=== PATIENT | female | born 1990 | race Caucasian/White ===

== ENCOUNTER 2020-01-28 19:48 | Emergency (ER) | payer OTHER ==
[~2020-01-28] VITALS: Ht 160 cm; Wt 112.5 kg
[2020-01-28 19:55] VITALS: Ht 160 cm; Wt 112.5 kg
[2020-01-28 20:35] LABS: BASOPHIL % 0.3 % (0-2); RED CELL DISTRIBUTION WIDTH 12.8 % (11.5-14.5)
[2020-01-28 20:41] LABS: PLATELET COUNT 420 x10^3mcL (130-400)
[2020-01-28 20:47] LABS: CALCIUM 8.4 mg/dL (8.5-10.1); CARBON DIOXIDE 24.7 mmol/L (21-32); CHLORIDE SERUM 103 mmol/L (98-107); CREATININE SERUM 0.9 mg/dL (0.6-1.0); GFR1 > 60 mL/min; GLUCOSE SERUM 98 mg/dL (74-106); POTASSIUM SERUM 3.8 mmol/L (3.5-5.1); SODIUM SERUM 139 mmol/L (136-145)
[2020-01-28 20:48] LABS: UA SPECIFIC GRAVITY >=1.030 (1.005-1.035); microscopic required? YES; urine erythrocyte 2+ (NEGATIVE)
[2020-01-28 20:51] LABS: ALKALINE PHOSPHATASE 84 U/L (46-116); ALT/SGPT 37 U/L (14-59); AST/SGOT 21 U/L (15-37); BILIRUBIN TOTAL 0.44 mg/dL (0.20-1.00); HDL CHOLESTEROL 51 mg/dL (40-60); TOTAL PROTEIN, SERUM 8.1 g/dL (6.4-8.2); TRIGLYCERIDES 69 mg/dL (<150)
[2020-01-28 20:53] LABS: CHOLESTEROL 123 mg/dL (<200); CHOLESTEROL/HDL RATIO 2.4
[2020-01-29 01:02] VITALS: BP 111/73
== END 2020-01-29 01:02 | disposition home or self-care (01) ==
LOC: ED 19:48
PROVIDERS: Specialist
DX: N83.201 Unspecified ovarian cyst, right side (principal); D72.829 Elevated white blood cell count, unspecified; J45.909 Unspecified asthma, uncomplicated; Z88.1 Allergy status to other antibiotic agents
CPT/HCPCS: J1885; J2405; J3010; J7030; Q0092

== ENCOUNTER 2020-01-29 12:58 | Emergency (ER) | payer OTHER ==
[~2020-01-29] VITALS: Ht 160 cm; Wt 112.0 kg
[2020-01-29 13:17] VITALS: BP 114/44; Ht 160 cm; Wt 112.0 kg
== END 2020-01-29 14:52 | disposition home or self-care (01) ==
LOC: ED 12:58
DX: R10.32 Left lower quadrant pain (principal); J45.909 Unspecified asthma, uncomplicated; Z88.1 Allergy status to other antibiotic agents

== ENCOUNTER 2020-01-30 18:45 | Emergency (ER) | payer OTHER ==
[~2020-01-30] VITALS: Ht 160 cm; Wt 112.5 kg
[2020-01-30 19:09] VITALS: Ht 160 cm; Wt 112.5 kg
[2020-01-30 19:37] LABS: BASOPHIL % 0.2 % (0-2); PLATELET COUNT 368 x10^3mcL (130-400); RED CELL DISTRIBUTION WIDTH 12.6 % (11.5-14.5)
[2020-01-30 19:46] LABS: CALCIUM 8.6 mg/dL (8.5-10.1); CARBON DIOXIDE 27.4 mmol/L (21-32); CHLORIDE SERUM 105 mmol/L (98-107); CREATININE SERUM 1.1 mg/dL (0.6-1.0); GFR1 > 60 mL/min; GLUCOSE SERUM 96 mg/dL (74-106); POTASSIUM SERUM 3.9 mmol/L (3.5-5.1); SODIUM SERUM 139 mmol/L (136-145)
[2020-01-30 19:50] LABS: ALBUMIN 3.7 g/dL (3.4-5.0); ALKALINE PHOSPHATASE 83 U/L (46-116); ALT/SGPT 27 U/L (14-59); AMYLASE 48 U/L (25-115); AST/SGOT 15 U/L (15-37); BILIRUBIN TOTAL 0.5 mg/dL (0.20-1.00); LIPASE 100 IU/L (73-393); TOTAL PROTEIN, SERUM 7.4 g/dL (6.4-8.2)
[2020-01-30 21:20] VITALS: BP 124/56
== END 2020-01-30 21:20 | disposition home or self-care (01) ==
LOC: ED 18:45
PROVIDERS: Emergency Medicine
DX: R10.32 Left lower quadrant pain (principal); R11.2 Nausea with vomiting, unspecified; J45.909 Unspecified asthma, uncomplicated; Z88.1 Allergy status to other antibiotic agents
CPT/HCPCS: J1885; J2270; J2405; J7030

== ENCOUNTER 2020-02-01 22:51 | Observation (INO) | payer OTHER ==
[~2020-02-01] VITALS: Ht 160 cm; Wt 111.6 kg
[2020-02-01 22:55] VITALS: Ht 160 cm; Wt 111.6 kg
[2020-02-01 23:54] LABS: microscopic required? NO
[2020-02-01 23:57] LABS: BASOPHIL % 0.3 % (0-2); PLATELET COUNT 336 x10^3mcL (130-400); RED CELL DISTRIBUTION WIDTH 12.7 % (11.5-14.5)
[2020-02-01 23:59] LABS: UA SPECIFIC GRAVITY >=1.030 (1.005-1.035); urine erythrocyte NEGATIVE (NEGATIVE)
[2020-02-02 00:09] LABS: CALCIUM 8.1 mg/dL (8.5-10.1); CARBON DIOXIDE 24.9 mmol/L (21-32); CREATININE SERUM 1.5 mg/dL (0.6-1.0); POTASSIUM SERUM 3.8 mmol/L (3.5-5.1)
[2020-02-02 00:13] LABS: ALBUMIN 3.4 g/dL (3.4-5.0); BILIRUBIN TOTAL 0.4 mg/dL (0.20-1.00); TOTAL PROTEIN, SERUM 7.5 g/dL (6.4-8.2)
--- NOTE | 2020-02-02 03:35 | NUR ---
RECEIVED PT FROM ED NURSE VIA WHEELCHAIR. PATIENT IS AAOX4, DENIES HEADACHES AT THIS TIME, COMPLAINTS OF NAUSEA/VOMITING. PATIENT IS MED SURG PATIENT, DENIES CHEST PAIN. PULSES ARE EQUAL BILATERALLY, NO EDEMA NOTED. PATIENT IS CTA, ON RA, DENIES SOB. NO ACUTE DISTRESS NOTED, EVEN AND UNLABORED BREATHING. ABDOMEN IS OBESE, NORMOACTIVE X4 QUADRANTS, LAST BM 01/31. PATIENT REPORTS INTERMITTENT ABDOMEN PAIN, POOR APPETITE, AND N/V AT THIS TIME. PATIENT VOIDS FREELY, DENIES PAIN. PATIENT DENIES GENERALIZED WEAKNESS, ABLE TO AMBULATE WITHOUT DIFFICULTY. SKIN IS DRY AND INTACT, NO LESIONS NOTED. IV TO RAC SITE 22G, INTACT NO REDNESS OR SWELLING. PATIENT HAS 2ND BAG OF NS BOLUS RUNNING AT THIS TIME. ALL SAFETY MEASURES IN PLACE, BED IN LOWEST POSITION, CALL LIGHT WITHIN REACH. WILL CONTINUE TO MONITOR.
--- NOTE | 2020-02-02 03:58 | NUR ---
PATIENT COMPLAINING OF NAUSEA/VOMITING, PAGE'D DR. RAMIREZ. AWAITING FOR CALL BACK AT THIS TIME.
[2020-02-02 03:59] VITALS: BP 123/59
--- NOTE | 2020-02-02 04:58 | NUR ---
EMAR WAS UPDATED, ADMINISTERED ZOFRAN PRN. PATIENT IS RESTING WITH EYES CLOSED AT THIS TIME. ALL SAFETY MEASURES IN PLACE, BED IN LOWEST POSITION, CALL LIGHT WITHIN REACH. WILL CONTINUE TO MONITOR.
--- NOTE | 2020-02-02 07:01 | NUR ---
PATIENT RESTING INTERMITTENTLY WITH EYES CLOSED. PATIENT REMAINS ON RA, DENIES SOB. IV AT RAC 20G, NS AT 125 ML/HR. PATIENT RECEIVED ZOFRAN, RESTING AT THIS TIME. ALL SAFETY MEASURES IN PLACE. BED IN LOWEST POSITION, CALL LIGHT WITHIN REACH. WILL CONTINUE TO MONITOR.
--- NOTE | 2020-02-02 07:10 | NUR ---
RECEIVED REPORT FROM ZACARIAS MADRID. PT IS AAOX4. PT MED SURG STATUS. DENIES CHEST PAIN AT THIS TIME. PT ON RA NO SOB OR DISTRESS. IV TO RAC NS RUNNING AT @125 CC/HR. ALL COMFORT AND SAFETY MEASURES IN PLACE. ALL QUESTIONS AND CONCERNS ADDRESSED. WILL CONTINUE TO MONITOR PT.
--- NOTE | 2020-02-02 07:30 | NUR ---
ENDORSED CARE TO DAYSHIFT NURSE. ALL QUESTIONS/CONCERNS ADDRESSED.
[2020-02-02 09:15] VITALS: BP 102/46
--- NOTE | 2020-02-02 11:10 | NUR ---
IN TO SEE PT. PT C/O PAIN TO LOWER ABD. PER PT, PAIN 06/03. PRN TYLENOL GIVEN FOR PAIN. WILL CONTINUE TO MONITOR PT.
[2020-02-02 13:54] VITALS: BP 112/50
--- NOTE | 2020-02-02 14:40 | NUR ---
IN TO SEE PT. PT C/O NAUSEA AT THIS TIME. PT GIVEN PRN NAUSEA MEDICATION. ALL QUESTIONS AND CONCERNS ADDRESSED. WILL CONTINUE TO MONITOR PT.
--- NOTE | 2020-02-02 15:29 | NUR ---
PT C/O 10 FLANK PAIN. TYLENOL NOT YET DUE. DR. RAMIREZ PAGED TO REQUEST MED FOR MODERATE PAIN.
[2020-02-02 18:07] VITALS: BP 118/47
--- NOTE | 2020-02-02 18:10 | NUR ---
IN TO SEE PT. PT REMAINS STABLE AT THIS TIME W/ NO ACUTE CHANGES TO STATUS. ALL QUESTIONS AND CONCERNS ADDRESSED. WILL CONTINUE TO MONITOR PT.
--- NOTE | 2020-02-02 19:10 | NUR ---
REPORT GIVEN TO ZACARIAS MADRID. PT REMAINED STABLE THROUGHOUT MY SHIFT W/ NO ACUTE CHANGES TO STATUS. ALL QUESTIONS AND CONCERNS ADDRESSED. ALL NEEDS MET AT THIS TIME. ALL CARES ENDORSED.
--- NOTE | 2020-02-02 19:30 | NUR ---
RECEIVED PT FROM DAYSMOFT NURSE. PT IS AAOX4, DENIES HEADACHE/NAUSEA/DIZZINESS AT THIS TIME. PT IS MED SURG PATIENT, DENIES CHEST PAIN. PULSES ARE EQUAL BILATERALLY, NO EDEMA NOTED. PT IS CTA, ON RA, DENIES SOB. ABDOMEN I IS OBESE, NO PAIN UPON PALPATION. NORMOACTIVE X4 QUADRANTS, LAST BM 02/01, PATIENT COMPLAINTS OF INTERMITTENT PAIN AND NAUSEA. PT VOIDS FREELY, DENIES GENERALIZED WEAKNESS. SKIN IS DRY AND INTACT, NO LESIONS NOTED. IV TO RAC 20G, SITE INTACT, NO REDNESS OR SWELLING NOTED. PT IS CALM AND COOPERATIVE AT THIS TIME. ALL SAFETY MEASURES IN PLACE. BED IN LOWEST POSITION, CALL LIGHT WITHIN REACH. WILL CONTINUE TO MONITOR.
[2020-02-02 21:35] VITALS: BP 122/64
--- NOTE | 2020-02-03 00:39 | NUR ---
PATIENT RESTING INTERMITTENTLY WITH EYES CLOSED. NO ACUTE CHANGES AT THIS TIME. PATIETN WAS GIVEN TYLENOL PRN FOR 3/10 PAIN. ALL SAFETY MEASURES IN PLACE. BED IN LOWEST POSITION, CALL LIGHT WITHIN REACH. WILL CONTINUE TO MONITOR.
[2020-02-03 04:56] VITALS: BP 122/56
--- NOTE | 2020-02-03 06:29 | NUR ---
PATIENT RESTED INTERMITTENTLY WITH EYES CLOSED. PATIENT COMPLAINED OF 7/10 PAIN, GIVEN TORADOL PRN. PATIENT DENIES SOB/CHEST PAIN. IV TO RAC 20G RUNNING NS AT 125ML/HR. SITE INTACT, NO REDNESS OR SWELLING. ALL SAFETY MEASURES IN PLACE. BED IN LOWEST POSITION, CALL LIGHT WITHIN REACH. WILL CONTINUE TO MONITOR.
[2020-02-03 07:04] LABS: CALCIUM 7.9 mg/dL (8.5-10.1); CREATININE SERUM 1.3 mg/dL (0.6-1.0)
--- NOTE | 2020-02-03 07:27 | NUR ---
ENDORSED CARE TO DAYSHIFT NURSE. ALL QUESTIONS/CONCERNS ADDRESSED.
[2020-02-03 07:28] LABS: BASOPHIL % 0.2 % (0-2); PLATELET COUNT 313 x10^3mcL (130-400); RED CELL DISTRIBUTION WIDTH 12.4 % (11.5-14.5)
--- NOTE | 2020-02-03 07:30 | NUR ---
RECEIVED PATIENT IN CONTACT/DROPLET ISOLATION. PATIENT IS IN BED, AWAKE, ALERT AND ORIENTED. RESP EVEN AND UNLABORED, LUNGS CLEAR ON ROOM AIR. IVF INFUSING WELL TO RT A/C, SITE PATIENT. ABD SOFT AND ROUND, BOWEL SOUNDS ACTIVE, LBM EARLY THIS AM PER PATIENT. VOIDING WELL, BRP. NO EDEMA NOTED PULSES PALABLE. WILL CONTINUE TO MONITOR.
--- NOTE | 2020-02-03 08:14 | NUR ---
PATIENT C/O FEELING NAUSEATED AND HAVING 5/10 LEFT FLANK PAIN. MEDICATED WITH ZOFRAN IV BY GINNY MADRID AND ALSO MEDICATED WITH TYLENOL PO PER PATIENT'S REQUEST BY MYSELF. WILL MONITOR FOR MONITOR FOR EFFECT.
[2020-02-03 08:33] VITALS: BP 126/69
--- NOTE | 2020-02-03 09:00 | NUR ---
PATIENT REMAINS IN BED, TALKING ON HER CELL PHONE. PER PATIENT LEFT FLANK PAIN IS NOW 3/10 ON THE PAIN SCALE AND HER NAUSEA HAS SUBSIDED. WILL CONTINUE TO MONITOR.
[2020-02-03 12:54] VITALS: BP 131/77
--- NOTE | 2020-02-03 14:09 | NUR ---
PATIENT C/O ABD PAIN AND FEELING NAUSEATED. PAIN IS 7/10. PATIENT MEDICATED WITH TORADOL AND ZOFRAN IV BY AMIE MADRID. WILL CONTINUE TO MONITOR FOR RELIEF.
--- NOTE | 2020-02-03 14:48 | NUR ---
Initial Nutrition Assessment: 204B ADALBERTO MCKEON 29F HR Nursing trigger: N/V/D > 3 days, Poor PO > 3 days Dx: abd pain, left flank pain, renal colic PMHx: no significant past medical history per H and P (02/01) PSHx: none noted Labs: (02/02) WBC 11.7H, H/H 11.8/35L, Cr. 1.3H, Ca 7.9L, (01/31) AST 13L, Lipase 59L Meds: Zofran, Heparin sodium, Colace, Tylenol, Toradol, Sodium Diet: Regular PO intake since admission: 30-50% x 3 meals with average PO intake of 36.67% Ht:160.02cm/63in Wt: 111.584kg/245.5lbs BMI: 43.6 Bed scale: 257lbs IBW: 52.27kg/115lbs %IBW: 213.5% ABW: 67kg UBW: 245lbs Age: 29 Food Allergies: Peaches Edema: no edema noted Last BM: 02/02 at 4:00 am per RN Skin: skin intact, no open wound noted Tho: 19 Per H and P (02/01), Patient is a 29-year-old female with no significant past medical history who presents with progressively worsening flank pain. Patient reports that her symptoms initially started on Monday where she had bad pain which persisted all week which was a sharp and constant pain to her left flank. Patient characterized the pain as persistent and dull with associated nausea. Patient has a past medical history of asthma and last use developed butyryl was 3 days ago. Patient came to the ER and in the ER CT scan of the abdomen showed 7 mm stone on the left. Patient started on IV fluids patient having leukocytosis but urinalysis is negative for infection. Pt was admitted with dx: 7mm left nephrolithiasis, flank pain left side, asthma, obesity, nausea RD Note (02/03/2020) Per pt's RN, pt's COVID test came back negative, but pt's door was closed d/t pt was sleeping after an episode of emesis. Per pt's primary RN, pt had c/o of nausea and vomiting this morning, and pt did not have breakfast today d/t poor appetite. Additionally, pt did not have diarrhea or chewing/swallowing difficulty observed. Visited pt again to obtain more information. Pt denied recent weight change, and her usual body weight was 245lbs. At home, pt followed a regular diet and denied using nutritional supplements. Pt's procedure for kidney stone is scheduled for 02/03, and pt will be NPO starting 8 AM on 02/03. Problem with: N/V/D/C: nausea, vomiting Problems with: Chewing: Swallowing: none per RN Current appetite: small appetite per pt Recent wt change: No per pt %wt change: No per pt Height: 5'3" per pt Vitamin/Supplement use: No per pt Special diet at home: none per pt Physical activity: none per pt Nutrition education given (specify specific nutrition education and handout given): Encouraged pt to increase PO intake after procedure scheduled tomorrow. Food-drug interactions? Education given? n/a Estimated Nutritional Needs Based on adjusted body weight (67kg) Energy: 6017-2558 kcal/day (22-25 kcal/kg for weight reduction) Protein: 53-67 g/day (0.8-1 g/kg for maintenance) Fluid: 4324-6597 mL/day (1 mL/kcal) Nutrition Diagnosis: 1. Inadequate energy and protein intake r/t poor PO intake a/e/b pt average PO intake of 36.67% since admission. 2. Obese r/t imbalance intake and output a/e/b pt BMI = 43.6kg/m2. Intervention 1. Continue Regular diet as tolerate 2. Continue NPO for procedure scheduled on 02/03 3. Recommend resuming regular diet when appropriate. 4. RD will implement ONS for diet if pt's PO intake meets < 75% of estimated needs upon follow up Monitor/Evaluate Goal: PO intake at least 75% of estimated needs Monitor: PO intake, Labs, GI function, Body weight F/U in 2-3 days as high risk 02/04-
--- NOTE | 2020-02-03 15:55 | NUR ---
PATIENT REMAINS IN BED, NO FURTHER C/O PAIN OR NAUSEA AT THIS TIME. IVF INFUSING WELL. CONSENT SIGNED FOR LITHOTRIPSY FOR TOMORROW. NO ACUTE DISTRESS NOTED. WILL CONTINUE TO MONITOR.
--- NOTE | 2020-02-03 17:07 | NUR ---
PATIENT REMAINS IN BED WATCHING MOVIES. DENIES ANY C/O PAIN OR DISCOMFORT AT THIS TIME. IVF INFUSING WELL, SITE PATENT. AMBULATES AD KIRAN TO THE BATHROOM PRN. NO FURTHER N/V NOTED. NPO AFTER 8AM TOMORROW. NO ACUTE DISTRESS NOTED.
--- NOTE | 2020-02-03 17:11 | NUR ---
PATIENT'S PLAN OF CARE WAS DISCUSSED AND REVIEWED WITH MANAGER INTERNET:GALDINO CHAPA. I HAVE REVIEWED THE DATA COLLECTION BY MANAGER INTERNET (NAME):GALDINO CHAPA. ENTERED ON (DATE/TIME):02/03/20. I CONCUR WITH THE DATA AND ANY EXCEPTIONS OR COMMENTS ARE LISTED BELOW:
[2020-02-03 17:17] VITALS: BP 127/78
--- NOTE | 2020-02-03 18:00 | NUR ---
NO CHANGE IN PATIENT'S CONDITION NOTED AT THIS TIME. WILL CONTINUE TO MONITOR.
--- NOTE | 2020-02-03 19:02 | NUR ---
PATIENT C/O FEELING NAUSEATED. MEDIATED WITH ZOFRAN IV BY JOESPH MADRID ORDERED. WILL ENDORSE FOLLOW UP TO NOC RN.
--- NOTE | 2020-02-03 19:45 | NUR ---
RECEIVED PT IN BED AWAKE, ALERT, ORIENTED X4. SPEECH CLEAR. ABLE TO MAKE NEEDS KNOWN. PT C/O PAIN TO LEFT FLANK AREA, WILL MEDICATE ORDERED. NO TELE MONITOR NEEDED. LUNG SOUNDS CLEAR. BREATHING EASILY ON ROOM AIR. NO RESPIRATORY DISTRESS NOTED. BS ACTIVE IN ALL FOUR QUADS. LAST BM AT THIS TIME. PEDAL PULSES PALPABLE. VOIDING FREELY. IV TO RAC INFUSING NS AT 125ML/HR. SITE INTACT. PT ABLE TO AMBULATE WITHOUT ASSISTANCE FULL ROM. SKIN IN CDI. SHIFT ASSESSMENT COMPLETED. ALL NEEDS TENDED TO. PT AWARE SHE WILL BE NPO AT 0800. CALL LIGHT WITHIN REACH. BED IS IN LOWEST POSITION. WILL CONTINUE TO MONITOR CLOSELY.
--- NOTE | 2020-02-03 20:10 | NUR ---
PT C/O PAIN TO LEFT FLANK AREA, MORPHINE GIVEN ORDERED. NEW IV BAG HUNG AT THIS TIME. ALL DUE MEDS GIVEN ORDERED. CALL LIGHT WITHIN REACH. BED IS IN LOWEST POSITION. WILL CONTINUE TO MONITOR CLOSELY.
[2020-02-03 20:50] VITALS: BP 118/66
[2020-02-04] VITALS (11 sets, daily range): BP systolic 110–130; BP diastolic 51–76
--- NOTE | 2020-02-04 00:45 | NUR ---
PT C/O PAIN TO LEFT FLANK AREA AND NAUSEA, MEDICATED WITH TORADOL ORDERED AND ZOFRAN. IVF ONGOING. ALL NEEDS TENDED TO. WILL CONTINUE TO MONITOR CLOSELY.
--- NOTE | 2020-02-04 04:27 | NUR ---
PT HAD ONE EPISODE OF VOMITTING BILE, ZOFRAN GIVEN AT THIS TIME. NEW IV BAG HUNG. ALL NEEDS TENDED TO. PT AWARE SHE WILL EAT BREAKFAST THIS AM AND THEN BE NPO. CALL LIGHT WITHIN REACH. BED IS IN LOWEST POSITION. WILL CONTINUE TO MONITOR CLOSELY.
--- NOTE | 2020-02-04 07:30 | NUR ---
RECEIVED PATIENT IN BED, APPEARS TO BE RESTING WELL. IVF INFUSING WELL TO RT A/C, SITE PATENT. RESP EVEN AND UNLABORED, LUNGS CLEAR ON ROOM AIR. PATIENT TO BE NPO AFTER 8AM FOR PROCEDURE TODAY. NO ACUTE DISTRESS NOTED AT THIS ITME.
[2020-02-04 07:48] LABS: CALCIUM 8.3 mg/dL (8.5-10.1); CREATININE SERUM 1.2 mg/dL (0.6-1.0); MAGNESIUM 1.7 mg/dL (1.8-2.4); POTASSIUM SERUM 4.4 mmol/L (3.5-5.1)
[2020-02-04 08:31] LABS: BASOPHIL % 0.3 % (0-2); PLATELET COUNT 332 x10^3mcL (130-400); RED CELL DISTRIBUTION WIDTH 12.6 % (11.5-14.5)
--- NOTE | 2020-02-04 08:45 | NUR ---
PATIENT IS NOW NPO AFTER HAVING A BREAKFAST TRAY THIS AM. PATIENT C/O FEELING NAUESATED AND HAVING ABD PAIN 8/10 ON THE PAIN SCALE. WILL BE MEDICATED ORDERED.
--- NOTE | 2020-02-04 09:25 | NUR ---
PATIENT MEDICATED AT THIS TIME FOR ABD PAIN 8/10 ON THE PAIN SCALE, AND ZOFRAN IV FOR C/O NAUSEA BY AMIE MADRID. WILL MONITOR FOR EFFECT.
--- NOTE | 2020-02-04 10:02 | NUR ---
PATIENT'S PLAN OF CARE WAS DISCUSSED AND REVIEWED WITH EMBEDDED LINUX DEVELOPER:GALDINO CHAPA. I HAVE REVIEWED THE DATA COLLECTION BY EMBEDDED LINUX DEVELOPER (NAME):GALDINO CHAPA. ENTERED ON (DATE/TIME):02/04/20. I CONCUR WITH THE DATA AND ANY EXCEPTIONS OR COMMENTS ARE LISTED BELOW:
--- NOTE | 2020-02-04 10:34 | NUR ---
PATIENT APPEARS TO BE SLEEPING WELL AT THIS TIME AFTER MORPINE AND ZOFRAN WAS GIVEN. NO FURTHER C/O PAIN OR NAUSEA NOTED. WILL CONTINUE TO MONITOR.
--- NOTE | 2020-02-04 11:24 | NUR ---
PATIENT'S MG LEVEL IS 1.[address] HEATH HERE AND NOTIFIED. NEW ORDERS RECEIVED.
--- NOTE | 2020-02-04 11:57 | NUR ---
HEPARIN SQ WAS HELD THIS AM PER DR WICK. PATIENT REMAINS IN BED, APPEARS TO BE SNORING. NO FURTHER C/O PAIN OR NAUSEA AT THIS TIME.
--- NOTE | 2020-02-04 14:09 | NUR ---
PATIENT REMAINS IN BED, CHOLORHEXADINE WIPES DONE. PATIENT DID HAVE ANOTHER VERY SMALL EMESIS, BUT APPEARS TO HAVE GONE BACK TO SLEEP, SNORING HEARD. NO ACUTE DISTERSS NOTED. WILL CONTINUE TO MONITOR.
--- NOTE | 2020-02-04 15:15 | NUR ---
PATIENT CONTINUES TO APPEAR TO BE RESTING WELL AT THIS TIME. NPO FOR PROCEDURE THIS AFTERNOON. WILL CONTINUE TO MONITOR.
--- NOTE | 2020-02-04 17:01 | NUR ---
PATIENT GOING DOWN TO OR AT THIS TIME VIA BED. HL PATENT. WILL CONTINUE TO MONITOR UPON RETURN TO THE FLOOR.
--- NOTE | 2020-02-04 19:25 | NUR ---
RECEIVED REPORT FROM DAY SHIFT NURSE. PT IN OR AT THIS TIME. WAITING FOR PT TO RETURN.
--- NOTE | 2020-02-04 21:00 | NUR ---
RECEIVED PT FROM OR NURSE VIA [facility]. PT S/P LITHOTRIPSY. PT A/OX4. ABLE TO MAKE NEEDS KNOWN. SPEECH CLEAR. MED SURG PATIENT. PT DENIES CHEST PAIN OR PRESSURE. RR EVEN AND UNLABORED ON 2L NC, SATURATION 94%. PT STABLE AT THIS TIME. VITAL SIGNS ARE BP 116/57 (81), HR 52, RR 16, O2 94%, TEMP 97.9, AND PAIN 6/10. WILL MEDICATE PT PER MAY. PULSES PALPABLE. NO EDEMA NOTED. BOWEL SOUNDS HYPOACTIVE. ABD SOFT ROUND NONDISTENDED. PT REPORTED NAUSEA, DIZZINESS, AND ABD PAIN TO LLQ. PT ALSO REPORTED FEELING OF "HAVING TO GO NUMBER 2". PLACED PATIENT ON BED HOLMAN WITH [employer] BUSINESS SYSTEMS ANALYST. SKIN INTACT. IV TO RAC, PATENT AND INTACT. NO SIGNS OF ACUTE DISTRESS NOTED. CALL LIGHT WITHIN REACH. BED IN LOWEST POSITION. HELPED PATIENT FACETIME AT THIS TIME. WILL CONTINUE TO MONITOR.
--- NOTE | 2020-02-05 01:25 | NUR ---
PT SLEEPING AT THIS TIME. NO SIGNS OF ACUTE DISTRESS NOTED. RR EVEN AND UNLABORED ON RA. PT STABLE. NO C/O PAIN OR DISCOMFORT. WILL CONTINUE TO MONITOR.
--- NOTE | 2020-02-05 03:52 | NUR ---
PT REPORTED NAUSEA AT THIS TIME. MEDICATED PT PER MAY. WILL CONTINUE TO MONITOR.
[2020-02-05 05:13] VITALS: BP 128/73
--- NOTE | 2020-02-05 06:32 | NUR ---
PT RESTING IN BED AT THIS TIME. PT REPORTED FEELING TIRED BUT DENIES N/V OR PAIN AT THIS TIME. PT REPORTED URINATING THROUGHOUT THE NIGHT. RR EVEN AND UNLABORED ON RA. PT DENIES SOB OR DIFFICULTY BREATHING. ABD SOFT ROUND NONDISTENDED. PT C/O INTERMITTENT PAIN, DENIES PAIN MEDICATION AT THIS TIME. IVF INFUSING AT 125ML/HR. NO SIGNS OF INFILTRATION NOTED. ALL NEEDS/CONCERNS ADDRESSED THROUGHOUT THE SHIFT. WILL ENDORSE CARE TO ONCOMING SHIFT NURSE.
--- NOTE | 2020-02-05 07:15 | NUR ---
RECEIVED PATIENT FROM PM NURSE, ALERT AND ORIENTED X 4, ABLE TO VERBALIZE NEEDS, LUNG SOUNDS CLEAR ON RA, ABLE TO AMBULATE INDEPENDENTLY, IV IN RAC PATENT AND INFUSING NS @ 125ML/HR, DENIES CHEST PAIN, BOWEL SOUNDS HYPOACTIVE, LAST BM 02/03, SMALL AMOUNT, DRESSING ON SURGICAL SITE DIT, PEDAL PULSES STRONG AND EQUAL BILATERALLY, NO EDEMA NOTED, CONTINENT OF BLADDER, NO C/O PAIN AT THIS TIME, PATIENT CALM AND COOPERATIVE
[2020-02-05 07:26] LABS: CALCIUM 8.7 mg/dL (8.5-10.1); CARBON DIOXIDE 24.6 mmol/L (21-32); CHLORIDE SERUM 105 mmol/L (98-107); CREATININE SERUM 1.1 mg/dL (0.6-1.0); GFR1 > 60 mL/min; GLUCOSE SERUM 95 mg/dL (74-106); MAGNESIUM 1.8 mg/dL (1.8-2.4); POTASSIUM SERUM 4.5 mmol/L (3.5-5.1); SODIUM SERUM 140 mmol/L (136-145)
[2020-02-05 07:37] LABS: BASOPHIL % 0.2 % (0-2); RED CELL DISTRIBUTION WIDTH 12.5 % (11.5-14.5)
[2020-02-05 07:55] LABS: PLATELET COUNT 402 x10^3mcL (130-400)
[2020-02-05 08:59] VITALS: BP 121/61
--- NOTE | 2020-02-05 09:18 | NUR ---
PATIENT C/O 6/10 THROBBING PAIN IN ABDOMEN, PRN TORADOL ADMNISTERED PER EMAR, WILL CONTINUE TO MONITOR PATIENTS PAIN LEVEL
[2020-02-05 12:20] VITALS: BP 138/79
[2020-02-05] MEDS ORDERED: TYL325 PO (15:19)
[2020-02-05] MEDS ORDERED: NORCO1 TA2 PO (15:20)
[2020-02-05 16:05] VITALS: BP 138/79
[2020-02-05 16:50] VITALS: BP 145/55
--- NOTE | 2020-02-05 17:40 | NUR ---
PATIENT D/C HOME, ABLE TO AMBULATE AND TRANSFER INDEPENDENTLY, DISCHARGE INSTRUCTIONS PROVIDED REGARDING NEW MEDICATIONS AND DISEASE PROCESS, PATIENT VERBALIZED UNDERSTANDING, ALL CONCERNS ADRESSED, PIV DC'D WITH CATHETER INTACT, NO S/SX OF INFILTRATE
== END 2020-02-05 17:05 | disposition home or self-care (01) ==
LOC: ED 22:51 → MU 02-02 02:27
PROVIDERS: Emergency Medicine; ADMIT Hospitalist; ATTEND Hospitalist
DX: N13.2 Hydronephrosis with renal and ureteral calculous obstruction (principal); E66.9 Obesity, unspecified; J45.909 Unspecified asthma, uncomplicated; R11.2 Nausea with vomiting, unspecified; Z23 Encounter for immunization
CPT/HCPCS: 90658; C1769; C2625; G0378; J0131; J0330; J0696; J1170; J1644; J1885; J2001; J2250; J2270; J2405; J2704; J2710; J3010; J3490; J7030; J7120; Q9967; U0003

== ENCOUNTER 2020-02-17 06:12 | Day surgery (SDC) | payer OTHER, SELFPAY ==
[2020-02-13 14:40] LABS: BASOPHIL % 0.2 % (0-2); RED CELL DISTRIBUTION WIDTH 12.9 % (11.5-14.5)
[2020-02-13 14:41] LABS: PLATELET COUNT 427 x10^3mcL (130-400)
[2020-02-13 14:54] LABS: ALBUMIN 3.6 g/dL (3.4-5.0); ALKALINE PHOSPHATASE 73 U/L (46-116); ALT/SGPT 33 U/L (14-59); AST/SGOT 18 U/L (15-37); BILIRUBIN TOTAL 0.45 mg/dL (0.20-1.00); CALCIUM 8.6 mg/dL (8.5-10.1); CARBON DIOXIDE 24.2 mmol/L (21-32); CHLORIDE SERUM 106 mmol/L (98-107); GFR1 > 60 mL/min; GLUCOSE SERUM 90 mg/dL (74-106); SODIUM SERUM 141 mmol/L (136-145); TOTAL PROTEIN, SERUM 7.6 g/dL (6.4-8.2)
[~2020-02-17] VITALS: Ht 160 cm; Wt 108.9 kg
[~2020-02-17 06:12] MED LIST: NORCO1 TA2 PO; TYL325 PO
[2020-02-17 06:29] VITALS: BP 138/89
[2020-02-17 13:23] VITALS: BP 117/58
== END 2020-02-17 12:40 | disposition home or self-care (01) ==
LOC: DS 06:12 → OR 07:30 → DS 07:30
PROVIDERS: ATTEND Urology
DX: N20.1 Calculus of ureter (principal); J45.909 Unspecified asthma, uncomplicated; E66.9 Obesity, unspecified; Z68.41 Body mass index [BMI] 40.0-44.9, adult
CPT/HCPCS: C1758; C1769; C2625; J0696; J1170; J2001; J2250; J2405; J3010; Q9967